=== PATIENT | male | born 1990 | race Caucasian/White ===

== ENCOUNTER 2020-08-11 19:43 | Emergency (ER) | payer BC, OTHER ==
[~2020-08-11] VITALS: Ht 182.9 cm; Wt 72.0 kg
[~2020-08-11 19:43] MED LIST: OXYC-658 PO; TRAM50TA2 PO; toradol PO
[2020-08-11 19:46] VITALS: BP 129/82
[2020-08-11] MEDS ORDERED: LIDOcaine 1% W/epiNEPHrine 1:200,000 10ml vial IJ ONE (20:20)
[2020-08-11] MEDS ORDERED: CEPH-585 PO (20:55)
[2020-08-11] MEDS ORDERED: bacitracin 15gm ointment TP ONE (21:10)
== END 2020-08-11 21:48 | disposition home or self-care (01) ==
LOC: ER 19:44
DX: S61.012A Laceration without foreign body of left thumb without damage to nail, initial encounter (principal); Z79.2 Long term (current) use of antibiotics; W26.0XXA Contact with knife, initial encounter; Y93.89 Activity, other specified; Y92.89 Other specified places as the place of occurrence of the external cause; Y99.8 Other external cause status
CPT/HCPCS: 12001; 99283